=== PATIENT | female | born 1985 | race Caucasian/White ===

== ENCOUNTER 2019-12-09 12:28 | Emergency (ER) | payer OTHER ==
[2019-12-09] MEDS: Ketorolac 30 MG/ML SDV IM ONE ×2 (12:51→13:07)
[2019-12-09] MEDS: Ketorolac 30 MG/ML SDV ONE (12:57)
[2019-12-09] MEDS: Diazepam 5 MG Tab PO ONE (13:06)
--- NOTE | 2019-12-09 13:09 | EDM.PDOC ---
ED HPI GENERAL MEDICAL PROBLEM - General Chief Complaint: Back Pain or Injury Stated Complaint: BACK PAIN Time Seen by Provider: 12/09/19 13:00 Source of Information: Reports: Patient History Limitations: Reports: No Limitations - History of Present Illness INITIAL COMMENTS - FREE TEXT/NARRATIVE: Patient with left sided low back pain for several weeks associated with severe muscle spasm in left lower lumbosacral region. Main complaint today is muscle spasms. Requesting MRI to evaluate. Rates pain as 10/10 when spams present. Having problem with inability to bend over and changing positions due to pain. Duration: Week(s): (2-3 weeks) Location: Reports: Other (Left lower lumbosacral region of back) Quality: Reports: Ache, Other Severity: Severe (severe spasms at times) Improves with: Reports: Heat Therapy Left Lower Back Pain Score (Numeric/FACES): 6 ED ROS GENERAL - Review of Systems Review Of Systems: See Below Constitutional: Denies: Fever, Chills, Malaise Respiratory: Denies: Shortness of Breath, Cough Cardiovascular: Denies: Chest Pain, Palpitations GI/Abdominal: Denies: Abdominal Pain, Nausea, Vomiting : Denies: Dysuria, Flank Pain, Frequency, Hematuria Skin: Reports: No Symptoms Neurological: Denies: Confusion, Headache ED EXAM, GENERAL - Physical Exam Exam: See Below Exam Limited By: No Limitations General Appearance: Alert, WD/WN, No Apparent Distress Head: Atraumatic, Normocephalic Respiratory/Chest: No Respiratory Distress, Lungs Clear Cardiovascular: Regular Rate, Rhythm, No Murmur GI/Abdominal: Soft, Non-Tender Back Exam: Other (Decreased ROM . Patient able to touch 1/[address] down her anterior thights. MIld tenderness of left lower lumbosacral region MIld tendernss. NO spinal tenderness) Course - Vital Signs Text/Narrative:: Patient trated with Toradol 15 mg IM and prescribed and dispensed Valium 5 mg tablets 1 tablet po tid prn for muscle spasms Last Recorded V/S: Last Vital Signs Temp 97 F 12/09/19 13:13 Pulse 86 12/09/19 13:13 Resp 18 12/09/19 13:13 BP 106/66 12/09/19 13:13 Pulse Ox 100 12/09/19 13:13 - Orders/Labs/Meds Meds: Medications Discontinued Medications Generic Name Dose Route Start Last Admin Trade Name Abhinav PRN Reason Stop Dose Admin Diazepam 5 mg 12/09/19 13:04 12/09/19 13:06 Valium. PO 12/09/19 13:05 5 mg ONETIME ONE Administration Diazepam Confirm 12/09/19 13:14 Valium. Administered 12/09/19 13:15 Dose 5 mg .ROUTE .STK-MED ONE Ketorolac Tromethamine 30 mg 12/09/19 12:48 12/09/19 12:51 Toradol IM 12/09/19 12:49 Not Given ONETIME ONE Ketorolac Tromethamine 15 mg 12/09/19 12:50 12/09/19 13:07 Toradol IM 12/09/19 12:51 15 mg ONETIME ONE Administration Ketorolac Tromethamine Confirm 12/09/19 13:01 12/09/19 12:57 Toradol Administered 12/09/19 13:02 Not Given Dose 30 mg .ROUTE .STK-MED ONE Orphenadrine Citrate 60 mg 12/09/19 12:46 Norflex IM 12/09/19 12:47 ONETIME ONE Departure - Departure Time of Disposition: 13:05 Disposition: Home, Self-Care 01 Clinical Impression: Spasm of muscle of lower back Low back pain Qualifiers: Chronicity: acute Back pain laterality: left Sciatica presence: without sciatica Qualified Code(s): M54.5 - Low back pain - Discharge Information *PRESCRIPTION DRUG MONITORING PROGRAM REVIEWED*: No *COPY OF PRESCRIPTION DRUG MONITORING REPORT IN PATIENT JACK: No Instructions: Muscle Cramps and Spasms Referrals: PCP,None [Primary Care Provider] - Forms: ED Department Discharge Additional Instructions: Valium 5 mg by mouth three times a day as needed for muscle spasm. Cut back dosing for any adverse effects. Valium has long half life and will build up a level with subsequent doses Return for any difficulty with bowel or bladder functions or for worsening pain as needed Continue Heating pad Activity as tolerated. NO heavy lifting or repetitive movements Follow up with [facility] for further evaluation and to arrange MRI
[2019-12-09] MEDS ORDERED: Diazepam 5 MG Tab ONE (13:14)
== END 2019-12-09 13:15 | disposition home or self-care (01) ==
LOC: LB.ED 12:28
DX: M62.830 Muscle spasm of back (principal)
CPT/HCPCS: 96372; 99283; A9270; J1885